=== PATIENT | male | born 1935 | race Caucasian/White ===

== ENCOUNTER 2017-11-20 09:04 | Observation (INO) | payer MEDICARE ==
[~2017-11-20] VITALS: Ht 177.8 cm; Wt 74.5 kg
[~2017-11-20 09:04] MED LIST: CARAFATE1 GM/10 ML PO; CYMBALTA30 MG PO; LISINOPRIL10 MG PO; MIRTAZAPINE15 MG PO; PANTOPRAZOLE SO40 MG PO; PROZAC20 MG PO; SIMVASTATIN40 MG PO; TEMAZEPAM30 MG PO
[2017-11-20] MEDS ORDERED: SODIUM CHLORIDE 0.9% 500ML 500 ML IV STA (09:47)
[2017-11-20] MEDS ORDERED: ASPIRIN 81 MG CHEW TAB PO ONE ×2 (10:00→12:45)
[2017-11-20 10:06] LABS: BASOPHILS % 0.4 % (0.0-1.0); EOSINOPHILS # (AUTO) 0.1 (0.0-0.4); HEMATOCRIT 44.7 % (38.2-49.6); HEMOGLOBIN 15.5 g/dL (14.0-18.0); LYMPHOCYTES # (AUTO) 1.5 (1.0-3.2); LYMPHOCYTES % 21.6 % (18.0-39.1); MEAN CORPUSCULAR HGB CONC 34.7 g/dL (31-35); MEAN CORPUSCULAR VOLUME 95.3 fL (81-99); MONOCYTES # (AUTO) 0.6 (0.2-0.8); MONOCYTES % 8.7 % (4.4-11.3); NEUTROPHILS # (AUTO) 4.6 (2.1-6.9); NEUTROPHILS % 68.2 % (38.7-80.0); PLATELET COUNT 227 x10e3/uL (140-360); RED BLOOD COUNT 4.69 x10e6/uL (4.3-5.7); RED CELL DISTRIBUTION WIDTH 13.1 % (11.7-14.4)
[2017-11-20 10:19] LABS: CLARITY,URINE CLEAR (CLEAR); COLOR,URINE YELLOW (YELLOW); KETONES,URINE TRACE (NEGATIVE); LEUKOCYTE ESTERASE ,URINE NEGATIVE (NEGATIVE); NITRITE,URINE NEGATIVE (NEGATIVE); PROTEIN,URINE DIPSTICK NEGATIVE (NEGATIVE); URINE UROBILINOGEN 0.2 mg/dL (0.2 - 1)
[2017-11-20 10:20] LABS: BILIRUBIN,URINE NEGATIVE (NEGATIVE)
[2017-11-20 10:28] LABS: ALANINE AMINOTRANSFERASE 32 IU/L (0-55); ALBUMIN 3.8 g/dL (3.5-5.0); ALBUMIN/GLOBULIN RATIO 0.9 (0.8-2.0); ALKALINE PHOSPHATASE 39 IU/L (40-150); BLOOD UREA NITROGEN 12 mg/dL (7-26); BUN/CREATININE RATIO 14 (6-25); CALCIUM 9.1 mg/dL (8.4-10.2); CARBON DIOXIDE 25 mmol/L (22-29); CHLORIDE 104 mmol/L (98-107); CREATINE KINASE 147 IU/L (30-200); CREATININE, SERUM 0.85 mg/dL (0.72-1.25); EST GLOMERULAR FILTRATION RATE > 60 ML/MIN (60-); GLUCOSE 96 mg/dL (74-118); MAGNESIUM 3.6 MG/DL (1.3-2.1); SODIUM 136 mmol/L (136-145)
[2017-11-20 10:29] LABS: INR 1.09; PROTHROMBIN TIME 13.3 seconds (11.9-14.5)
[2017-11-20 10:29] LABS: RBC,URINE 0-5 /HPF (0-5); WBC,URINE (MAN) 0-5 /HPF (0-5)
[2017-11-20 10:30] LABS: PARTIAL THROMBOPLASTIN TIME 17.5 seconds (23.8-35.5)
[2017-11-20 10:30] LABS: BACTERIA,URINE RARE /HPF; EPITHELIAL CELLS,URINE RARE /LPF
[2017-11-20 10:34] LABS: ANION GAP 11.8 mmol/L (8-16); POTASSIUM 4.8 mmol/L (3.5-5.1)
--- NOTE | 2017-11-20 11:21 | Diagnostic Imaging Report ---
EXAMINATION: Head CT HISTORY: Dizziness COMPARISON: None. TECHNIQUE: Multidetector axial images were obtained without contrast from the foramen magnum to the vertex . The images were reconstructed using brain and bone algorithms. Thin section brain images were reformatted into coronal and sagittal planes. Intravenous contrast: None. Motion/streaking artifact limits the evaluation of the skull base and posterior cranial fossa. FINDINGS: Parenchyma: 1. No abnormal densities. 2. No mass or hemorrhage. No CT evidence of acute territorial vascular insult. Extra-axial spaces:No abnormal density. No extra-axial fluid collections Brain volume: Normal for age. Ventricles: No hydrocephalus or displacement. Arteries: No density suggestive of thrombus. Dural sinuses: No abnormal density. Extra-axial spaces: No abnormal density. Foramen magnum: No mass, Chiari malformation, or basilar invagination. Sella: No obvious mass. Paranasal/mastoid sinuses: Imaged portions unremarkable. Skull/Scalp: No lytic or blastic lesions. No fractures. IMPRESSION: No intracranial abnormalities. Signed by: Dr. Hiral Killian M.D. on 11/20/2017 11:18 AM
[2017-11-20] MEDS ORDERED: ONDANSETRON HCL INJ 2 MG/ML VIAL IV PRN (12:30)
[2017-11-20] MEDS: SODIUM CHLORIDE 0.9% 1000ML 1,000 ML IV SCH ×2 (14:50→23:09)
[2017-11-20 16:27] VITALS: BP 151/72
[2017-11-20 16:36] VITALS: BP 151/72
[2017-11-20 19:08] LABS: CREATINE KINASE 174 IU/L (30-200)
[2017-11-20 20:00] VITALS: BP 146/69
[2017-11-20] MEDS: TEMAZEPAM 15 MG CAP PO SCH (21:11)
[2017-11-20] MEDS: SIMVASTATIN 40 MG TAB PO SCH (21:11)
[2017-11-21] VITALS (8 sets, daily range): BP systolic 113–163; BP diastolic 58–72
[2017-11-21 05:48] LABS: BASOPHILS % 0.6 % (0.0-1.0); EOSINOPHILS # (AUTO) 0.1 (0.0-0.4); HEMATOCRIT 40.2 % (38.2-49.6); HEMOGLOBIN 14.1 g/dL (14.0-18.0); LYMPHOCYTES # (AUTO) 1.9 (1.0-3.2); MEAN CORPUSCULAR HEMOGLOBIN 32.8 pg (28-32); MEAN CORPUSCULAR HGB CONC 35.1 g/dL (31-35); MEAN CORPUSCULAR VOLUME 93.5 fL (81-99); MONOCYTES # (AUTO) 0.7 (0.2-0.8); MONOCYTES % 9.8 % (4.4-11.3); NEUTROPHILS # (AUTO) 4.3 (2.1-6.9); NEUTROPHILS % 60.5 % (38.7-80.0); PLATELET COUNT 290 x10e3/uL (140-360); RED CELL DISTRIBUTION WIDTH 12.8 % (11.7-14.4)
[2017-11-21 06:04] LABS: ALANINE AMINOTRANSFERASE 22 IU/L (0-55); ALBUMIN 3.3 g/dL (3.5-5.0); ALBUMIN/GLOBULIN RATIO 1.3 (0.8-2.0); ALKALINE PHOSPHATASE 39 IU/L (40-150); ANION GAP 11.7 mmol/L (8-16); BLOOD UREA NITROGEN 11 mg/dL (7-26); BUN/CREATININE RATIO 15 (6-25); CALCIUM 8.5 mg/dL (8.4-10.2); CARBON DIOXIDE 25 mmol/L (22-29); CHLORIDE 109 mmol/L (98-107); CREATININE, SERUM 0.72 mg/dL (0.72-1.25); EST GLOMERULAR FILTRATION RATE > 60 ML/MIN (60-); GLUCOSE 88 mg/dL (74-118); POTASSIUM 3.7 mmol/L (3.5-5.1); SODIUM 142 mmol/L (136-145)
[2017-11-21 06:28] LABS: CREATINE KINASE MB 1.5 ng/mL (0-5.0)
[2017-11-21] MEDS: ASPIRIN 81 MG ENTERIC COATED PO SCH (08:23)
[2017-11-21] MEDS: SODIUM CHLORIDE 0.9% 1000ML 1,000 ML IV SCH (16:54)
[2017-11-21] MEDS ORDERED: MECLIZINE HCL12.5 MG PO (18:04)
[2017-11-21 18:31] LABS: CHOL/HDL RATIO 2.5 (3.9-4.7)
[2017-11-21] MEDS: SIMVASTATIN 40 MG TAB PO SCH (21:00)
[2017-11-21] MEDS ORDERED: NON-FORMULARY MEDICATION (Temazepam 30 MG) PO SCH (21:00)
--- NOTE | 2017-11-21 21:23 | History and Physical ---
PRIMARY CARE PHYSICIAN: Dr. Carlos Tejada. CHIEF COMPLAINT: Dizziness. HISTORY OF PRESENT ILLNESS: This is an 80-year-old man with a history of depression, now developing dizziness at home. He is unclear as to whether he felt like the room was spinning or whether he was lightheaded, but patient came to the hospital and started on IV fluids for rehydration and is feeling better now. He denies any chest pain or shortness of breath. He denies any other symptoms. He does admit to some difficulty expressing himself, although he has had no difficulty in expressing himself here. When actually his daughter thinks he has problems expressing himself, he states no. PAST MEDICAL HISTORY: Acute gastritis, hypertension, depression, dehydration, and acute cholecystitis status post laparoscopic cholecystectomy. PAST SURGICAL HISTORY: Laparoscopic cholecystectomy, back surgery, and kidney stone removal. ALLERGIES: PER ELECTRONIC MEDICAL RECORD. FAMILY HISTORY/SOCIAL HISTORY: Patient is . He has 3 children and lives alone. No alcohol or illicits. He quit cigarettes 40 years ago. He is retired from [employer]. MEDICATIONS: Per electronic medical record. REVIEW OF SYSTEMS: Denies any chest pain, shortness of breath, fever, chills, nausea, vomiting, diarrhea, leg pain, back pain, blurred vision, or headache. PHYSICAL EXAMINATION VITAL SIGNS: Reviewed. GENERAL: A tired-appearing man, resting in bed. HEENT: Anicteric. Pupils reactive to light. No lesions. CARDIOVASCULAR: Normal S1 and S2. LUNGS: Moderate breath sounds. ABDOMEN: Soft, nontender, and nondistended. EXTREMITIES: No edema or calf tenderness. NEUROLOGICAL: Alert and oriented x3. Moving all extremities. No obvious cognitive slowing. No focal motor deficits. No facial droop or asymmetry. SKIN: Dry. PSYCHIATRIC: Normal affect. LABS: Reviewed. MEDICATIONS: Reviewed. ASSESSMENT: This is an 82-year-old male admitted with: 1. Dizziness. 2. Depression. 3. Hypertension. 4. Acute transaminitis. 5. Dehydration. 6. Hyperlipidemia. PLAN 1. CT scan negative of the brain. 2. Patient wants to obtain an MRI to evaluate his ongoing problem with expressing himself. He suspects he has had a stroke. 3. We will obtain orthostatic vitals. 4. We continue rehydrating the patient. 5. He denies any alcohol use, but his AST is almost double his ALT. We will recheck his LFTs in the morning. 6. We will use SCDs. 7. Continue his home medications. 8. We will obtain his lipid panel. 9. We will get physical therapy on board to evaluate and do discharge planning. 10. We will screen him for diabetes. Job#: [id number] SANIA
[2017-11-21] MEDS: MECLIZINE HCL 12.5 MG TAB PO SCH (21:32)
[2017-11-21] MEDS: TEMAZEPAM 15 MG CAP PO SCH (21:32)
[2017-11-22] VITALS: BP 134/64
[2017-11-22 04:00] VITALS: BP_SYST 131; BP_SYST 146; BP_DIAS 66; BP_DIAS 70
[2017-11-22] MEDS: SODIUM CHLORIDE 0.9% 1000ML 1,000 ML IV SCH (04:22)
[2017-11-22] MEDS: MECLIZINE HCL 12.5 MG TAB PO SCH ×2 (06:45→13:00)
[2017-11-22 07:38] VITALS: BP 136/69
[2017-11-22] MEDS ORDERED: ASPIRIN81 MG PO (07:41)
[2017-11-22] MEDS ORDERED: LISINOPRIL 10 MG TAB PO SCH (09:00)
[2017-11-22] MEDS ORDERED: FLUOXETINE HCL 20 MG CAP PO SCH (09:00)
[2017-11-22] MEDS: ASPIRIN 81 MG ENTERIC COATED PO SCH (09:31)
[2017-11-22 11:23] VITALS: BP 140/73
--- NOTE | 2017-11-22 13:59 | Diagnostic Imaging Report ---
Examination: MRI BRAIN WITHOUT CONTRAST History: Dizziness. Comparison studies:Head CT performed November 20, 2017 Technique: Sagittal T2; axial DWI, FLAIR, GRE or SWI, T1, Coronal FLAIR. Intravenous contrast: None Findings: Scalp: No abnormal signal. No masses. Bone marrow: Normal in signal intensity. Brain volume: Adequate for age. No volume loss. Ventricles: Normal in size and configuration. No hydrocephalus. Extra-axial spaces: No abnormalities. Parenchyma: There are scattered patchy areas of T2/FLAIR hyperintensity in the periventricular and subcortical white matter, nonspecific. No masses, hemorrhage, or acute vascular insults. Suprasellar and sellar region: Partially CSF filled sella. Craniocervical junction: No abnormalities. The foramen magnum is patent. No Chiari malformations. Vessels: Normal flow-voids in the arteries and sinuses. Additional findings:Bilateral slitlike orbital lenses. IMPRESSION: 1. No acute intracranial abnormalities. 2. Mild chronic microvascular ischemic change. Signed by: Dr. Mariia Johnson M.D. on 11/22/2017 1:55 PM
[2017-11-22 15:26] VITALS: BP 149/77
--- NOTE | 2017-11-22 17:58 | Discharge Summary ---
DISCHARGE DIAGNOSES 1. Dizziness, possibly benign paroxysmal positional vertigo. 2. Depression. 3. Hypertension. 4. Acute transaminitis. 5. Dehydration. 6. Hyperlipidemia. SECONDARY DIAGNOSIS: Hypertension. CHIEF COMPLAINT: Dizziness. HISTORY OF PRESENT ILLNESS: This is an 80-year-old man with history of dizziness. Please refer to the H\T\P for further details. HOSPITAL COURSE: The patient had CT scan and imaging was negative. Requested MRI imaging due to, what he states, is expressive aphasia, difficulty in expressing himself, though he had not had any problems expressing himself to me. MRI obtained to rule out subacute or chronic stroke was negative. The patient received physical therapy. Orthostatic vitals were negative. Blood pressure normal. His LDL was 82 and triglycerides 39. The patient was discharged from the hospital with blood pressure controlled, and on cholesterol medicine. His hemoglobin A1c was 5.4. He needs to follow up with primary care physician in one week. CONDITION ON DISCHARGE: Stable and improving. DISCHARGE LOCATION: Home. ARLET AGUILAR MD Job#: [id number] [facility]
== END 2017-11-22 19:00 | disposition home or self-care (01) ==
LOC: ER 09:04 → ERHOLD 12:29 → IMCU 13:21
PROVIDERS: ADMIT Internal Medicine; ATTEND Internal Medicine
DX: R42 Dizziness and giddiness (principal); E86.0 Dehydration; E83.41 Hypermagnesemia; R74.0 Nonspecific elevation of levels of transaminase and lactic acid dehydrogenase [LDH]; I10 Essential (primary) hypertension; F32.9 Major depressive disorder, single episode, unspecified; E78.5 Hyperlipidemia, unspecified; Z79.82 Long term (current) use of aspirin
CPT/HCPCS: 36415 ×2; 70450; 70551; 80053 ×2; 80061; 81001; 82550 ×2; 82553 ×2; 83036; 83735; 84484 ×2; 85025 ×2; 85610; 85730; 93005 ×2; 97161; 99284; G0378 ×3; G8978; G8979; G8980; J7030 ×3; J7040

== ENCOUNTER 2021-05-09 12:47 | Inpatient (IN) | payer MEDICARE ==
[~2021-05-09] VITALS: Ht 177.8 cm; Wt 75.4 kg
[~2021-05-09 12:47] MED LIST changes: +ASPIRIN81 MG PO; +MECLIZINE HCL12.5 MG PO
[2021-05-09] MEDS ORDERED: SODIUM CHLORIDE 0.9% 1000ML 1,000 ML IV ONE (13:15)
[2021-05-09 13:51] LABS: BASOPHILS % 0.1 % (0.0-1.0); HEMATOCRIT 50.9 % (38.2-49.6); HEMOGLOBIN 17.1 g/dL (14.0-18.0); LYMPHOCYTES # (AUTO) 1.2 (1.0-3.2); LYMPHOCYTES % 5.3 % (18.0-39.1); MEAN CORPUSCULAR HEMOGLOBIN 32.6 pg (28-32); MEAN CORPUSCULAR HGB CONC 33.6 g/dL (31-35); MONOCYTES # (AUTO) 1.7 (0.2-0.8); MONOCYTES % 7.5 % (4.4-11.3); NEUTROPHILS # (AUTO) 19.9 (2.1-6.9); NEUTROPHILS % 86.2 % (38.7-80.0); PLATELET COUNT 383 x10e3/uL (140-360); RED BLOOD COUNT 5.25 x10e6/uL (4.3-5.7); RED CELL DISTRIBUTION WIDTH 13.4 % (11.7-14.4)
[2021-05-09 14:12] LABS: ALBUMIN/GLOBULIN RATIO 1.3 (0.8-2.0); ANION GAP 20.5 mmol/L (8-16); CALCIUM 9.8 mg/dL (8.4-10.2); CREATININE, SERUM 2.08 mg/dL (0.72-1.25); MAGNESIUM 2.7 MG/DL (1.3-2.1); POTASSIUM 4.5 mmol/L (3.5-5.1)
[2021-05-09 14:14] LABS: CLARITY,URINE CLEAR (CLEAR); COLOR,URINE YELLOW (YELLOW); LEUKOCYTE ESTERASE ,URINE NEGATIVE (NEGATIVE); NITRITE,URINE NEGATIVE (NEGATIVE); PROTEIN,URINE DIPSTICK 2+ (NEGATIVE)
[2021-05-09 14:15] LABS: KETONES,URINE 1+ (NEGATIVE); URINE UROBILINOGEN 0.2 mg/dL (0.2 - 1)
[2021-05-09] MEDS ORDERED: CEFTRIAXONE 1 GM VIAL IM ONE (14:30)
[2021-05-09 14:35] LABS: WBC,URINE (MAN) 0-5 /HPF (0-5)
[2021-05-09 14:36] LABS: EPITHELIAL CELLS,URINE RARE /LPF
[2021-05-09 15:28] LABS: INR 1.08; PROTHROMBIN TIME 14.9 seconds (11.9-14.5)
[2021-05-09 15:29] LABS: PARTIAL THROMBOPLASTIN TIME 26.9 seconds (23.8-35.5)
[2021-05-09] MEDS ORDERED: ASPIRIN 81 MG CHEW TAB PO ONE (16:30)
[2021-05-09] MEDS ORDERED: Vancomycin IV 1 GM in SODIUM CHLORIDE 0.9% 250ML 250 ML IV SCH (18:15)
[2021-05-09] MEDS: SODIUM CHLORIDE 0.9% 1000ML 1,000 ML IV SCH ×2 (18:52→22:08)
[2021-05-09] MEDS: MEROPENEM 500 MG in SODIUM CHLORIDE 0.9% 50ML 50 ML IV SCH (18:52)
[2021-05-09] MEDS ORDERED: BENZONATATE 100 MG CAP PO PRN (19:45)
[2021-05-09] MEDS ORDERED: SIMETHICONE 80 MG CHEW PO PRN (19:45)
[2021-05-09] MEDS ORDERED: DIPHENHYDRAMINE HCL 25 MG CAP PO PRN (19:45)
[2021-05-09] MEDS ORDERED: ONDANSETRON HCL INJ 2MG/ML 2ML 2 MG/ML VIAL IV PRN (19:45)
[2021-05-09] MEDS ORDERED: POTASSIUM CHLORIDE 20 MEQ TAB CR PO PRN (19:45)
[2021-05-09] MEDS ORDERED: HYDRALAZINE HCL 20 MG/ML VIAL IV PRN (19:45)
[2021-05-09] MEDS ORDERED: DOCUSATE SODIUM 100 MG CAP PO PRN (19:45)
[2021-05-09] MEDS ORDERED: LIDOCAINE 4% PATCH TP PRN (19:45)
[2021-05-09] MEDS ORDERED: DEXTROSE 50% SYRINGE 50 ML IV PRN (19:45)
[2021-05-09] MEDS ORDERED: TRAMADOL HCL 50 MG TAB PO PRN (19:45)
[2021-05-09] MEDS ORDERED: ACETAMINOPHEN 325 MG TAB PO PRN (19:45)
[2021-05-09] MEDS ORDERED: ALBUTEROL/IPRATROPIUM 3 ML NEB NEB PRN (19:45)
[2021-05-09] MEDS: HEPARIN SOD (PORCINE) 5,000 UNIT/ML VIAL SC SCH (20:42)
[2021-05-09 20:57] LABS: CREATINE KINASE MB 114.1 ng/mL (0-5.0)
[2021-05-09] MEDS ORDERED: Vancomycin IV 1 GM VIAL ONE (22:41)
[2021-05-09] MEDS ORDERED: SODIUM CHLORIDE 0.9% 250ML 250 ML ONE (22:41)
[2021-05-09 22:45] VITALS: BP 131/64
[2021-05-09 22:53] VITALS: BP 131/64
[2021-05-09 23:00] VITALS: BP 117/66
[2021-05-09 23:30] VITALS: BP 133/64
[2021-05-09 23:59] VITALS: BP 156/81
[2021-05-10] VITALS (28 sets, daily range): BP systolic 116–156; BP diastolic 56–98
[2021-05-10] MEDS: SODIUM CHLORIDE 0.9% 1000ML 1,000 ML IV SCH (05:24)
[2021-05-10 05:40] LABS: BASOPHILS % 0.2 % (0.0-1.0); EOSINOPHILS % 0.1 % (0.0-6.0); HEMATOCRIT 43.1 % (38.2-49.6); HEMOGLOBIN 14.3 g/dL (14.0-18.0); LYMPHOCYTES % 5.7 % (18.0-39.1); MEAN CORPUSCULAR HEMOGLOBIN 32.7 pg (28-32); MEAN CORPUSCULAR HGB CONC 33.2 g/dL (31-35); MEAN CORPUSCULAR VOLUME 98.6 fL (81-99); MONOCYTES # (AUTO) 1.5 (0.2-0.8); MONOCYTES % 8.1 % (4.4-11.3); NEUTROPHILS # (AUTO) 15.3 (2.1-6.9); NEUTROPHILS % 85.2 % (38.7-80.0); PLATELET COUNT 304 x10e3/uL (140-360); RED BLOOD COUNT 4.37 x10e6/uL (4.3-5.7); RED CELL DISTRIBUTION WIDTH 13.6 % (11.7-14.4)
[2021-05-10] MEDS: MEROPENEM 500 MG in SODIUM CHLORIDE 0.9% 50ML 50 ML IV SCH ×2 (05:40→18:07)
[2021-05-10 06:02] LABS: ALBUMIN 3.1 g/dL (3.5-5.0); ALBUMIN/GLOBULIN RATIO 1.2 (0.8-2.0); ANION GAP 16.6 mmol/L (8-16); CALCIUM 8.2 mg/dL (8.4-10.2); CREATININE, SERUM 1.64 mg/dL (0.72-1.25); POTASSIUM 3.6 mmol/L (3.5-5.1)
[2021-05-10 06:46] LABS: MAGNESIUM 2.4 MG/DL (1.3-2.1); PHOSPHORUS 3.4 MG/DL (2.3-4.7)
[2021-05-10 07:06] LABS: THYROID STIMULATING HORMONE 0.633 uIU/mL (0.350-4.940)
[2021-05-10] MEDS: HEPARIN SOD (PORCINE) 5,000 UNIT/ML VIAL SC SCH ×2 (09:00→20:34)
[2021-05-10 12:40] LABS: CHOL/HDL RATIO 2.5 (3.9-4.7)
[2021-05-10] MEDS: PANTOPRAZOLE SOD 40 MG TABEC PO SCH (12:51)
[2021-05-10] MEDS: SODIUM CHLORIDE 0.45% 1,000 ML IV SCH ×2 (13:16→18:11)
[2021-05-11] VITALS (21 sets, daily range): BP systolic 107–141; BP diastolic 52–97
[2021-05-11] MEDS: SODIUM CHLORIDE 0.45% 1,000 ML IV SCH ×3 (00:53→18:20)
[2021-05-11] MEDS: MEROPENEM 500 MG in SODIUM CHLORIDE 0.9% 50ML 50 ML IV SCH ×2 (06:15→18:20)
[2021-05-11 06:33] LABS: BASOPHILS % 0.2 % (0.0-1.0); EOSINOPHILS # (AUTO) 0.1 (0.0-0.4); EOSINOPHILS % 0.9 % (0.0-6.0); HEMATOCRIT 41.2 % (38.2-49.6); HEMOGLOBIN 13.5 g/dL (14.0-18.0); LYMPHOCYTES # (AUTO) 1.3 (1.0-3.2); LYMPHOCYTES % 9.7 % (18.0-39.1); MEAN CORPUSCULAR HEMOGLOBIN 32.8 pg (28-32); MEAN CORPUSCULAR HGB CONC 32.8 g/dL (31-35); MEAN CORPUSCULAR VOLUME 100.2 fL (81-99); NEUTROPHILS # (AUTO) 10.5 (2.1-6.9); NEUTROPHILS % 80.8 % (38.7-80.0); PLATELET COUNT 185 x10e3/uL (140-360); RED BLOOD COUNT 4.11 x10e6/uL (4.3-5.7); RED CELL DISTRIBUTION WIDTH 13.8 % (11.7-14.4)
[2021-05-11 06:45] LABS: ALBUMIN 2.6 g/dL (3.5-5.0); ALBUMIN/GLOBULIN RATIO 1.1 (0.8-2.0); ANION GAP 12.8 mmol/L (8-16); CALCIUM 7.8 mg/dL (8.4-10.2); CREATININE, SERUM 1.01 mg/dL (0.72-1.25); POTASSIUM 3.8 mmol/L (3.5-5.1)
[2021-05-11 07:11] LABS: MAGNESIUM 2.2 MG/DL (1.3-2.1)
[2021-05-11] MEDS: PANTOPRAZOLE SOD 40 MG TABEC PO SCH (08:18)
[2021-05-11] MEDS: HEPARIN SOD (PORCINE) 5,000 UNIT/ML VIAL SC SCH ×2 (08:23→21:00)
[2021-05-12] VITALS (7 sets, daily range): BP systolic 123–156; BP diastolic 50–97
[2021-05-12 05:15] LABS: BASOPHILS % 0.2 % (0.0-1.0); EOSINOPHILS # (AUTO) 0.3 (0.0-0.4); HEMATOCRIT 39.7 % (38.2-49.6); HEMOGLOBIN 13.4 g/dL (14.0-18.0); LYMPHOCYTES # (AUTO) 1.2 (1.0-3.2); LYMPHOCYTES % 14.5 % (18.0-39.1); MEAN CORPUSCULAR HEMOGLOBIN 32.6 pg (28-32); MEAN CORPUSCULAR HGB CONC 33.8 g/dL (31-35); MEAN CORPUSCULAR VOLUME 96.6 fL (81-99); MONOCYTES # (AUTO) 0.8 (0.2-0.8); MONOCYTES % 9.9 % (4.4-11.3); NEUTROPHILS % 71.7 % (38.7-80.0); PLATELET COUNT 288 x10e3/uL (140-360); RED BLOOD COUNT 4.11 x10e6/uL (4.3-5.7); RED CELL DISTRIBUTION WIDTH 13.6 % (11.7-14.4)
[2021-05-12 05:55] LABS: ALBUMIN 2.6 g/dL (3.5-5.0); ANION GAP 11.5 mmol/L (8-16); CALCIUM 7.9 mg/dL (8.4-10.2); CREATININE, SERUM 0.89 mg/dL (0.72-1.25); POTASSIUM 3.5 mmol/L (3.5-5.1)
[2021-05-12] MEDS: MEROPENEM 500 MG in SODIUM CHLORIDE 0.9% 50ML 50 ML IV SCH ×2 (06:30→17:11)
[2021-05-12 06:36] LABS: MAGNESIUM 2.1 MG/DL (1.3-2.1)
[2021-05-12] MEDS: SODIUM CHLORIDE 0.45% 1,000 ML IV SCH ×2 (08:38→10:50)
[2021-05-12] MEDS: PANTOPRAZOLE SOD 40 MG TABEC PO SCH (08:38)
[2021-05-12] MEDS: HEPARIN SOD (PORCINE) 5,000 UNIT/ML VIAL SC SCH ×2 (08:49→21:00)
[2021-05-12] MEDS: SODIUM CHLORIDE 0.9% 1000ML 1,000 ML IV SCH (14:58)
[2021-05-12] MEDS: PERIPHERAL TPN FORMULA 1 BAG IV SCH (20:00)
[2021-05-13] VITALS (8 sets, daily range): BP systolic 107–163; BP diastolic 51–80
[2021-05-13] MEDS: SODIUM CHLORIDE 0.9% 1000ML 1,000 ML IV SCH (05:07)
[2021-05-13] MEDS: MEROPENEM 500 MG in SODIUM CHLORIDE 0.9% 50ML 50 ML IV SCH ×2 (06:01→18:22)
[2021-05-13 06:54] LABS: BASOPHILS % 0.4 % (0.0-1.0); EOSINOPHILS # (AUTO) 0.2 (0.0-0.4); EOSINOPHILS % 2.7 % (0.0-6.0); HEMATOCRIT 38.5 % (38.2-49.6); HEMOGLOBIN 13.1 g/dL (14.0-18.0); LYMPHOCYTES # (AUTO) 1.3 (1.0-3.2); LYMPHOCYTES % 15.2 % (18.0-39.1); MONOCYTES # (AUTO) 0.9 (0.2-0.8); MONOCYTES % 10.6 % (4.4-11.3); NEUTROPHILS # (AUTO) 5.8 (2.1-6.9); NEUTROPHILS % 70.4 % (38.7-80.0); PLATELET COUNT 294 x10e3/uL (140-360); RED BLOOD COUNT 3.97 x10e6/uL (4.3-5.7); RED CELL DISTRIBUTION WIDTH 13.2 % (11.7-14.4)
[2021-05-13] MEDS: PANTOPRAZOLE SOD 40 MG TABEC PO SCH (07:30)
[2021-05-13 07:38] LABS: ANION GAP 12.6 mmol/L (8-16); CALCIUM 7.9 mg/dL (8.4-10.2); CREATININE, SERUM 0.83 mg/dL (0.72-1.25); POTASSIUM 3.6 mmol/L (3.5-5.1)
[2021-05-13] MEDS: HEPARIN SOD (PORCINE) 5,000 UNIT/ML VIAL SC SCH ×2 (09:15→22:20)
[2021-05-13] MEDS: METOPROLOL TARTRATE 25 MG TAB PO SCH ×3 (12:00→20:33)
[2021-05-13] MEDS: BALSAM PERU/CASTOR OIL 60 GM OINT...G. TP SCH (14:17)
[2021-05-14] VITALS (8 sets, daily range): BP systolic 138–173; BP diastolic 68–83
[2021-05-14] MEDS: PERIPHERAL TPN FORMULA 1 BAG IV SCH (01:17)
[2021-05-14] MEDS: METOPROLOL TARTRATE 25 MG TAB PO SCH ×3 (05:25→20:18)
[2021-05-14 05:33] LABS: BASOPHILS % 0.5 % (0.0-1.0); EOSINOPHILS # (AUTO) 0.3 (0.0-0.4); EOSINOPHILS % 3.2 % (0.0-6.0); HEMATOCRIT 39.8 % (38.2-49.6); HEMOGLOBIN 13.3 g/dL (14.0-18.0); LYMPHOCYTES # (AUTO) 1.1 (1.0-3.2); LYMPHOCYTES % 13.6 % (18.0-39.1); MEAN CORPUSCULAR HEMOGLOBIN 32.8 pg (28-32); MEAN CORPUSCULAR HGB CONC 33.4 g/dL (31-35); MONOCYTES # (AUTO) 0.8 (0.2-0.8); MONOCYTES % 9.7 % (4.4-11.3); PLATELET COUNT 271 x10e3/uL (140-360); RED BLOOD COUNT 4.06 x10e6/uL (4.3-5.7); RED CELL DISTRIBUTION WIDTH 13.4 % (11.7-14.4)
[2021-05-14] MEDS: MEROPENEM 500 MG in SODIUM CHLORIDE 0.9% 50ML 50 ML IV SCH ×2 (05:42→20:47)
[2021-05-14 06:09] LABS: ANION GAP 11.7 mmol/L (8-16); CALCIUM 8.2 mg/dL (8.4-10.2); CREATININE, SERUM 0.83 mg/dL (0.72-1.25); MAGNESIUM 2.3 MG/DL (1.3-2.1); PHOSPHORUS 3.5 MG/DL (2.3-4.7); POTASSIUM 3.7 mmol/L (3.5-5.1)
[2021-05-14] MEDS: PANTOPRAZOLE SOD 40 MG TABEC PO SCH (07:30)
[2021-05-14] MEDS: HEPARIN SOD (PORCINE) 5,000 UNIT/ML VIAL SC SCH ×2 (09:00→20:59)
[2021-05-14] MEDS ORDERED: KETAMINE HCL INJ 50 MG/ML 10 ML VIAL ONE (13:47)
[2021-05-14] MEDS: FUROSEMIDE INJ 10 MG/ML 4 ML VIAL IV SCH ×2 (15:08→20:48)
[2021-05-14] MEDS ORDERED: PROPOFOL IV EMULSION 10 MG/ML 20 ML VIAL ONE (17:01)
[2021-05-14] MEDS ORDERED: LIDOCAINE HCL 2% LOCAL INJ 5 ML SDV VIAL INJ ONE (17:01)
[2021-05-14] MEDS ORDERED: PERIPHERAL TPN FORMULA 1 BAG IV SCH ×2 (20:00)
[2021-05-14] MEDS ORDERED: DIPHENHYDRAMINE HCL INJ 50 MG/ML VIAL IV ONE (21:30)
[2021-05-15 00:40] VITALS: BP 147/70
[2021-05-15 04:53] VITALS: BP 124/84
[2021-05-15] MEDS: METOPROLOL TARTRATE 25 MG TAB PO SCH ×3 (05:27→21:32)
[2021-05-15] MEDS: MEROPENEM 500 MG in SODIUM CHLORIDE 0.9% 50ML 50 ML IV SCH ×2 (05:53→17:54)
[2021-05-15 06:28] LABS: BASOPHILS % 0.4 % (0.0-1.0); EOSINOPHILS # (AUTO) 0.2 (0.0-0.4); EOSINOPHILS % 2.1 % (0.0-6.0); HEMATOCRIT 40.3 % (38.2-49.6); HEMOGLOBIN 13.8 g/dL (14.0-18.0); LYMPHOCYTES # (AUTO) 1.4 (1.0-3.2); LYMPHOCYTES % 14.1 % (18.0-39.1); MEAN CORPUSCULAR HEMOGLOBIN 32.4 pg (28-32); MEAN CORPUSCULAR HGB CONC 34.2 g/dL (31-35); MEAN CORPUSCULAR VOLUME 94.6 fL (81-99); MONOCYTES # (AUTO) 1.2 (0.2-0.8); MONOCYTES % 11.7 % (4.4-11.3); NEUTROPHILS % 70.3 % (38.7-80.0); PLATELET COUNT 304 x10e3/uL (140-360); RED BLOOD COUNT 4.26 x10e6/uL (4.3-5.7); RED CELL DISTRIBUTION WIDTH 13.2 % (11.7-14.4)
[2021-05-15 07:11] LABS: ALBUMIN 2.6 g/dL (3.5-5.0); ANION GAP 13.6 mmol/L (8-16); CALCIUM 8.2 mg/dL (8.4-10.2); CREATININE, SERUM 0.95 mg/dL (0.72-1.25); POTASSIUM 3.6 mmol/L (3.5-5.1)
[2021-05-15 07:32] LABS: MAGNESIUM 2.1 MG/DL (1.3-2.1); PHOSPHORUS 4.2 MG/DL (2.3-4.7)
[2021-05-15 08:00] VITALS: BP 147/69
[2021-05-15] MEDS: FUROSEMIDE INJ 10 MG/ML 4 ML VIAL IV SCH ×2 (09:00→21:31)
[2021-05-15] MEDS: BALSAM PERU/CASTOR OIL 60 GM OINT...G. TP SCH ×2 (11:11→11:19)
[2021-05-15] MEDS: HEPARIN SOD (PORCINE) 5,000 UNIT/ML VIAL SC SCH ×2 (11:13→21:00)
[2021-05-15] MEDS: PANTOPRAZOLE SOD 40 MG TABEC PO SCH (11:19)
[2021-05-15 12:00] VITALS: BP 147/70
[2021-05-15 16:00] VITALS: BP 156/81
[2021-05-15 20:00] VITALS: BP 158/79
[2021-05-16] VITALS: BP 147/75
[2021-05-16] MEDS: METOPROLOL TARTRATE 25 MG TAB PO SCH (05:19)
[2021-05-16] MEDS: MEROPENEM 500 MG in SODIUM CHLORIDE 0.9% 50ML 50 ML IV SCH (05:19)
[2021-05-16 05:30] LABS: BASOPHILS # (AUTO) 0.1 (0.0-0.1); BASOPHILS % 0.7 % (0.0-1.0); EOSINOPHILS # (AUTO) 0.2 (0.0-0.4); EOSINOPHILS % 2.8 % (0.0-6.0); HEMATOCRIT 44.6 % (38.2-49.6); HEMOGLOBIN 14.7 g/dL (14.0-18.0); LYMPHOCYTES # (AUTO) 1.7 (1.0-3.2); LYMPHOCYTES % 21.2 % (18.0-39.1); MEAN CORPUSCULAR HEMOGLOBIN 32.4 pg (28-32); MEAN CORPUSCULAR VOLUME 98.2 fL (81-99); MONOCYTES # (AUTO) 1.2 (0.2-0.8); MONOCYTES % 14.1 % (4.4-11.3); NEUTROPHILS # (AUTO) 4.8 (2.1-6.9); NEUTROPHILS % 59.4 % (38.7-80.0); PLATELET COUNT 278 x10e3/uL (140-360); RED BLOOD COUNT 4.54 x10e6/uL (4.3-5.7); RED CELL DISTRIBUTION WIDTH 13.2 % (11.7-14.4)
[2021-05-16 05:31] VITALS: BP 143/84
[2021-05-16 05:53] LABS: ANION GAP 13.5 mmol/L (8-16); CALCIUM 8.6 mg/dL (8.4-10.2); CREATININE, SERUM 0.98 mg/dL (0.72-1.25); POTASSIUM 3.5 mmol/L (3.5-5.1)
[2021-05-16] MEDS: PANTOPRAZOLE SOD 40 MG TABEC PO SCH (08:05)
[2021-05-16] MEDS: FUROSEMIDE INJ 10 MG/ML 4 ML VIAL IV SCH (08:05)
[2021-05-16] MEDS: BALSAM PERU/CASTOR OIL 60 GM OINT...G. TP SCH (08:06)
[2021-05-16] MEDS: HEPARIN SOD (PORCINE) 5,000 UNIT/ML VIAL SC SCH (08:06)
[2021-05-16 08:11] VITALS: BP 132/55
[2021-05-16] MEDS ORDERED: ASPIRIN 81 MG CHEW TAB PO SCH (09:00)
[2021-05-16 09:45] VITALS: BP 132/55
[2021-05-16 11:26] VITALS: BP 126/54
[2021-05-16] MEDS ORDERED: ONDANSETRON HCL 4 MG ORAL DISINTEGRATING TAB PO PRN (13:30)
== END 2021-05-16 14:43 | DRG 871 ==
LOC: ER 12:55 → ERHOLD 16:35 → ICU 22:40 → MED/SURG 05-11 19:20
PROVIDERS: ADMIT Internal Medicine; ATTEND Internal Medicine
PROC: 02HV33Z Insertion of Infusion Device into Superior Vena Cava, Percutaneous Approach (ICD-10-PCS; principal; 2021-05-13)
PROC: 0DH63UZ Insertion of Feeding Device into Stomach, Percutaneous Approach (ICD-10-PCS; 2021-05-14)
PROC: 3E0G76Z Introduction of Nutritional Substance into Upper GI, Via Natural or Artificial Opening (ICD-10-PCS; 2021-05-15)
DX: A41.9 Sepsis, unspecified organism (principal); G93.41 Metabolic encephalopathy; J69.0 Pneumonitis due to inhalation of food and vomit; N39.0 Urinary tract infection, site not specified; N17.8 Other acute kidney failure; E87.0 Hyperosmolality and hypernatremia; T79.6XXA Traumatic ischemia of muscle, initial encounter; W19.XXXA Unspecified fall, initial encounter; G98.8 Other disorders of nervous system; G20 Parkinson's disease; R29.6 Repeated falls; Z74.09 Other reduced mobility; F09 Unspecified mental disorder due to known physiological condition; R77.8 Other specified abnormalities of plasma proteins; E86.9 Volume depletion, unspecified; K20.90 Esophagitis, unspecified without bleeding; K29.70 Gastritis, unspecified, without bleeding; K29.80 Duodenitis without bleeding; K57.90 Diverticulosis of intestine, part unspecified, without perforation or abscess without bleeding; E04.1 Nontoxic single thyroid nodule; M16.0 Bilateral primary osteoarthritis of hip; M17.12 Unilateral primary osteoarthritis, left knee
CPT/HCPCS: 36415; 36569; 43246; 70450; 70551; 71045; 71250; 72125; 72170; 74176; 74230; 80048; 80053; 80061; 81001; 82550; 82553; 82948; 83036; 83605; 83735; 83880; 84100; 84145; 84443; 84484; 85025; 85610; 85730; 87040; 87086; 93005; 93306; 94799; 96366; 99251; 99284; J0696; J1200; J1644; J1940; J2001; J2185; J3370; J7030; J7050; U0002

== ENCOUNTER 2021-07-26 08:03 | Emergency (ER) | payer MEDICARE ==
[~2021-07-26] VITALS: Ht 177.8 cm; Wt 75.3 kg
== END 2021-07-26 10:20 | disposition home or self-care (01) ==
LOC: ER 08:10
DX: Z43.1 Encounter for attention to gastrostomy (principal); I10 Essential (primary) hypertension; E78.5 Hyperlipidemia, unspecified; F41.9 Anxiety disorder, unspecified; Z85.89 Personal history of malignant neoplasm of other organs and systems; Z87.442 Personal history of urinary calculi
CPT/HCPCS: 99283